=== PATIENT | male | born 1965 | race Caucasian/White ===

== ENCOUNTER → 2020-07-10 12:00 | Outpatient (CLI) | payer OTHER, SELFPAY ==
[2020-07-11 20:09] LABS: COVID19 Sendout Not Detected (Not Detect)
== END ==
PROVIDERS: Visit Provider Physician Assistant
DX: Z11.59 Encounter for screening for other viral diseases (principal)
CPT/HCPCS: 87635

== ENCOUNTER 2020-07-13 13:55 | Day surgery (SDC) | payer OTHER, SELFPAY ==
[2020-07-11 08:07] VITALS: BMI 21.7
[2020-07-13] VITALS (10 sets, daily range): BP systolic 115–157; BP diastolic 76–94; PULSE 79–100; RESP 12–20; TEMP 36.2–37.2; O2SAT 93–100; BMI 21.2
--- NOTE | 2020-07-13 | DI.RAD.S_ITS ---
PROCEDURE: XR LUMBAR SPINE 2-3V INDICATIONS: MICRO-D TECHNIQUE: 2 views of the lumbar spine were acquired. COMPARISON: None. FINDINGS: Bones: Intraoperative assessment documenting port placement for micro discectomy on the left, overlying the L5-S1 disc space axial level superimposed on the posterior elements. Soft tissues: Overlying bowel gas pattern is normal. No suspicious soft tissue calcifications. IMPRESSION: L5-S1 axial level localization on the left at the dorsal spinal elements in that area. Dictated by: Karthik Crooks M.D. on 07/13/2020 at 17:44 Approved by: Karthik Crooks M.D. on 07/13/2020 at 17:45
[2020-07-13] MEDS: LACTATED RINGERS 1,000 ML 42 ML IV ×2 (14:31→16:40)
--- NOTE | 2020-07-13 15:27 | PM.PREOP ---
Pre-operative Note COVID-19 COVID-19 status: Negative Result date/Date tested (Pos, Neg/Pending): 07/11/20 Interval Note History & Physical reviewed/Exam performed by Physician: Yes Changes to H&P: No
[2020-07-13] MEDS: CEFAZOLIN 1 GM VIAL IV (16:23)
--- NOTE | 2020-07-13 16:25 | SUR.OPER ---
Prone on spine table, head in foam head support, padded chest and pelvic supports, gel pad at knees, lower legs supported by pillows; nipples, genitalia and toes free of pressure, arms secured on foam padded arm boards at <90 degrees abduction. Tape over blanket at thigh secured to table.
[2020-07-13] MEDS: methylPREDNISolone acet DEPO 40 MG/ML VIAL IM (16:27)
[2020-07-13] MEDS: BUPIVACAINE 0.25% W/ EPI (PF) 10 ML VIAL 20 ML INJ (16:28)
--- NOTE | 2020-07-13 17:13 | P.OP_ITS ---
Operative Date/Time/Diagnoses Date of procedure: 07/13/20 Time of procedure: 16:13 Pre-op diagnosis: 1. L5-S1 disc herniation 2. Lumbar radiculopathy Post-op diagnosis: same Procedure & Clinicians Procedure: 1. L5-S1 left microdiscectomy 2. Utilization of microsurgical technique and operating microscope Same procedure as scheduled: Yes Indications: Patient has been having chronic back pain and worsening lumbar radiculopathy. Patient failed multiple conservative management with worsening pain weakness and numbness in her lower extremity. Patient has been having difficulty performing activity of daily living. After discussing risks benefits of treatment options, patient elected proceed with surgery. Surgeon: Bennie Mahmood Kitchen Mechanic: Sarai Villa Click Yes if Unassisted: No Anesthesia Type: General Operative Notes Closure Type: primary Specimen(s): none sent Estimated Blood Loss (mL): 5 Blood products transfused: none Procedure in detail: Patient was seen in the preoperative area. Risks and benefits of the surgery was discussed with the patient. Informed consent was obtained from the patient and placed in the chart. Surgical site was marked. Patient was taken to the operative room. General anesthesia was administered. Prophylactic antibiotic was given to the patient less than 30 min before the incision was made. Patient was placed into a prone position on the Wilfred table. Patient's back was then prepped and draped in the sterile fashion. Time- out was performed at this time. Using AP and lateral C-arm imaging the interval between L5-S1 was identified and marked on patient's back. A 1 inch incision 1 in from midline was made on the left side. The fascia was incised in line with skin incision. Globus MARS retractors was placed inside the incision and docked onto the L5 lamina. Using microsurgical technique and operating microscope, a L5 laminotomy was performed using a Kerrison rongeur. Liagamentum flavum was resected at the site of the laminotomy. The disc space at L5-S1 was identified. Microdiscectomy was performed by incising the annulus with #11 blade. Microcurettes and pituitary was used to removed herniated disc fragments of disc from the epidural space. After the microdiskectomy was completed, the area medial lateral superior and inferior to the area of the microdiskectomy was inspected and explored using a micro curette. No other impinging structure was identified. There was significant amount of adhesion between the disc and the dura. In order to prevent accidental injury to the dura careful dissection was made using micropituitary and micro curette. Small amount of residual disc was intimately connected to the dura and was left attached in order to prevent accidental injury to the dura. Epidural space as well as neural foramen are fully decompressed after the resection of disc fragments hypertrophied ligamentum flavum and parts of the facet was resected. The wound was then irrigated with sterile normal saline. 40 mg Depo-Medrol was placed into the epidural space. The deep fascia was closed with 1-0 Vicryl. The subcutaneous tissue was closed with 2-0 Vicryl. The skin was closed with 4-0 Monocryl. Patient tolerated the procedure well. There were no complications. Patient was transferred recovery room in stable condition. Complications: none Post-operative Condition: stable Disposition: PACU Plan for aftercare: Discharge to home
[2020-07-13] MEDS: fentaNYL 100 MCG/2 ML INJ IV (17:46)
[2020-07-13] MEDS: hydrOXYzine 50 MG/ML INJ 25 MG IM (17:50)
[2020-07-13] MEDS: OXYCODONE/ACETAMINOPHEN 5/325 TABLET 1 TAB PO (17:52)
[2020-07-13] MEDS: HYDROMORPHONE 2 MG INJ 1 MG IV (18:05)
== END 2020-07-13 18:43 | disposition home or self-care (01) ==
PROVIDERS: PCP Family Medicine; Referring Provider Family Medicine; Visit Provider Orthopaedic Surgery Orthopaedic Surgery of the Spine
PROC: (CPT 63030; principal; 2020-07-13 15:15)
DX: M51.17 Intervertebral disc disorders with radiculopathy, lumbosacral region (principal); M19.012 Primary osteoarthritis, left shoulder; L40.50 Arthropathic psoriasis, unspecified
CPT/HCPCS: 63030; 72100; 76000; J0330; J0690; J1030; J1100; J1170; J2405; J2704; J3010; J3410

== ENCOUNTER → 2021-03-01 07:56 | Outpatient (CLI) | payer OTHER, SELFPAY ==
[2021-03-01 11:22] LABS: COVID19 -Nasal RAPID Negative (Negative)
== END ==
PROVIDERS: PCP Family Medicine; Visit Provider Student in an Organized Health Care Education/Training Program
DX: Z01.812 Encounter for preprocedural laboratory examination (principal); Z20.822 Contact with and (suspected) exposure to COVID-19
CPT/HCPCS: 87635

== ENCOUNTER 2021-03-03 09:32 | Day surgery (SDC) | payer OTHER, SELFPAY ==
[2021-02-24 09:43] VITALS: BMI 21.7
[2021-03-03] VITALS (11 sets, daily range): BP systolic 111–157; BP diastolic 65–94; PULSE 93–121; RESP 12–18; TEMP 36.2–36.7; O2SAT 94–100; BMI 21.7
[2021-03-03] MEDS: ACETAMINOPHEN 325 MG TABLET 975 MG PO (09:57)
[2021-03-03] MEDS: GABAPENTIN 300 MG CAPSULE PO (09:57)
[2021-03-03] MEDS: LACTATED RINGERS 1,000 ML 42 ML IV ×2 (10:25→14:26)
--- NOTE | 2021-03-03 12:20 | PM.PREOP ---
Pre-operative Note COVID-19 COVID-19 status: Negative Result date/Date tested (Pos, Neg/Pending): 03/01/21 Interval Note History & Physical reviewed/Exam performed by Physician: Yes Changes to H&P: No
[2021-03-03] MEDS: CEFAZOLIN 1 GM VIAL 2 GM IV ×2 (13:32→20:36)
[2021-03-03] MEDS: BUPIVACAINE LIPOSOME 266 MG/20 ML VIAL INJ (13:50)
[2021-03-03] MEDS: BUPIVACAINE 0.25% (PF) VIAL 30 ML INJ (13:50)
--- NOTE | 2021-03-03 14:58 | P.EN_ITS ---
Event Note Date Patient Seen: 03/03/21 Time Patient Seen: 13:02 Event Note: Patient: Sanchez Hutson : 1965 Surgery: L5-S1 TLIF Date: 03/03/2021 Difficult Airway Letter You have been found to have a difficult airway. This means that it was challenging for an Anesthesiologist to put in a breathing tube. This may happen in the future as well, so please bring this letter or at least tell future providers of this issue. This was an anticipated challenge based on pre- operative exam. Exam: BMI normal, mallampati score 3 with small mouth opening, adequate prognathia, good thyromental distance and neck range of motion greatly limited. Narrative: A general anesthetic with ETT was planned. Smooth IV induction after 3 minutes of pre-oxygenation, keeping patient's head/neck in a postition of his comfort. An initial look was attempted with a Etienne 2 and elicited a grade 4 view. A glidescope with a LoPro S3 blade was used, grade 2b view on video, 7.0 ETT passed through cords with stylette. (+) EtCO2. Successful technique: glidescope videolaryngoscope LoPro S3 blade with use of stylette. Very Respectfully, Anum PERRIN Anesthesiologist
--- NOTE | 2021-03-03 15:25 | DI.RAD.S_ITS ---
PROCEDURE: XR LUMBAR SPINE 2-3V INDICATIONS: L5-S1 TLIF TECHNIQUE: 2 intraoperative views of the lumbar spine were acquired. COMPARISON: [facility], CR, XR LUMBAR SPINE 2-3V, 07/13/2020, 16:24. FINDINGS: Pedicle screws at L5-S1 with intervertebral body spacer. Hardware projects in the expected locations. IMPRESSION: Expected appearance L5-S1 TLIF. Dictated by: Art Squires M.D. on 03/03/2021 at 16:05 Approved by: Art Squires M.D. on 03/03/2021 at 16:07
--- NOTE | 2021-03-03 15:26 | P.OP_ITS ---
Operative Date/Time/Diagnoses Date of procedure: 03/03/21 Time of procedure: 15:30 Pre-op diagnosis: 1. L5-S1 retrolisthesis 2. L5-S1 spinal stenosis with radiculopathy 3. L5-S1 spondylosis with radiculopathy Post-op diagnosis: same Procedure & Clinicians Procedure: 1. L5-S1 Postero-lateral and posterior interbody fusion 2. L5-S1 interbody cage placement. 3. L5-S1 decompressive laminectomy with bilateral facetecomies 4. L5-S1 Posterior non-segmental instrumentation 5. [place] of bone marrow from iliac crest 6. Utilization of microsurgical technique and operating microscope Same procedure as scheduled: Yes Indications: Patient has been having chronic back pain and worsening lumbar radiculopathy. Patient had previous microdiskectomy with temporary relief of his radicular symptoms. Patient has been having worsening back pain and radiculopathy over the last 6 months. Patient failed multiple conservative management with worsening pain weakness and numbness in her lower extremity. Patient has been having difficulty performing activity of daily living. After discussing risks benefits of treatment options, patient elected proceed with surgery. Surgeon: Bennie Mahmood Brake Press Operator: Paramjit Matthew Click Yes if Unassisted: No Anesthesia Type: General Operative Notes Closure Type: primary Specimen(s): none sent Prosthetic devices, grafts, tissues, transplants, or devices: Globus revolve screws, Rise cage Estimated Blood Loss (mL): 50 Blood products transfused: none Procedure in detail: Patient was seen in the preoperative area. Risks and benefits of the surgery was discussed with the patient. Informed consent was obtained from the patient and placed in the chart. Surgical site was marked. Patient was taken to the operative room. General anesthesia was administered. Prophylactic antibiotic was given to the patient less than 30 min before the incision was made. Patient was placed into a prone position on the Wilfred table. Patient's back was then prepped and draped in the sterile fashion. Time- out was performed at this time. Using AP and lateral C-arm imaging the interval between L5-S1 was identified and marked on patient's back. A 2 inch incision 2 in from midline was made on the left side first. The fascia was incised in line with skin incision. Globus MARS retractors was placed inside the incision and docked onto the L5 lamina. Using microsurgical technique and operating microscope, a L5 laminectomy and L5-S1 facetectomy was performed using a Kerrison rongeur. Patient was found have severe neural foraminal stenosis and required a total facetectomy for decompression which rendered L5-S1 grossly unstable and required a fusion procedure at the same time. The disc space at L5-S1 was identified. And a total diskectomy was performed at L5-S1 level. The endplates were decorticated using a rasp and shaver. The total diskectomy and decortication was performed at L5-S1 level in order to to accomplish a L5-S1 fusion. The local bone from the laminectomy and facetectomy was saved for local bone grafting. After the total diskectomy and decortication was completed, Trifecta bone graft material was combined with local bone that was harvested earlier. At this time, a separate skin is incision was made over the iliac crest. A Jamshidi needle was inserted into the iliac crest through a separate skin incision. 5 cc of bone marrow aspiration was obtained through the separate skin incision using a Jamshidi needle from the iliac crest. The bone marrow aspiration was combined with local bone and the Trifecta bone grafting material. The bone grafting material was placed into the L5-S1 interbody space along with a expandable cage. The cage was expanded to its maximum height using the torque limiting screwdriver. At this time a mirror image incision was made on the right side. The fascia was incised in line with the skin incision. Globus MARS retractor was inserted and docked onto the L5-S1 posterolateral gutter. Using the power drill, posterior- lateral decortication was performed at L5-S1 level until bleeding cortical bone was identified. The remaining bone grafting material was placed into the L5-S1 posterior lateral gutter he order to accomplish posterolateral fusion at the L5- S1 level. Using the double C-arm technique, pedicle screws were placed into the L5-S1 pedicles bilaterally. This was done by placing the Jamshidi needle into the pedicles, then placing the guidewires over the Jamshidi needle, and finally placing the cannulated screws over the guidewires bilaterally. After the pedicle screws were placed, 2 titanium rods was locked into the heads of the pedicle screws using locking caps and torque limiting screwdriver. After all the hardware was placed, and confirmed with AP and lateral C-arm imaging, the wound was then irrigated with sterile normal saline and packed with Ray-Echo gauze for 3 min to accomplish hemostasis. After the gauze was removed the deep fascia was closed with #1 Vicryl suture. The subcutaneous layer was closed with 2-0 Vicryl. The skin was closed with skin [place]. Patient tolerated the procedure well. There were no complications. Complications: none Post-operative Condition: stable Disposition: PACU Plan for aftercare: Admit to inpatient hospital
[2021-03-03] MEDS: fentaNYL 100 MCG/2 ML INJ IV ×4 (15:50→16:09)
[2021-03-03] MEDS: HYDROMORPHONE 2 MG INJ IV ×4 (15:54→16:12)
[2021-03-03] MEDS: OXYCODONE IR 5 MG TABLET PO (16:10)
[2021-03-03] MEDS: SODIUM CHLORIDE 0.9% 1,000 ML 100 ML IV (16:54)
[2021-03-03] MEDS: PRAVASTATIN 20 MG TABLET 40 MG PO (17:11)
[2021-03-03] MEDS: OXYCODONE IR 5 MG TABLET 10 MG PO ×2 (17:12→20:01)
[2021-03-03] MEDS: hydrOXYzine pamoate 25 MG CAPSULE PO ×2 (17:12→21:46)
[2021-03-03] MEDS: HYDROMORPHONE 0.5 MG INJ IV ×2 (18:33→21:46)
[2021-03-03] MEDS: ACETAMINOPHEN 325 MG TABLET 650 MG PO (20:02)
[2021-03-03] MEDS: DOCUSATE 100 MG CAPSULE PO (21:46)
[2021-03-03] MEDS: SENNOSIDES 8.6 MG TABLET 17.2 MG PO (21:46)
[2021-03-04] MEDS: OXYCODONE IR 5 MG TABLET 10 MG PO ×4 (00:40→11:56)
[2021-03-04 01:00] VITALS: BP 117/63; PULSE 97; RESP 18; TEMP 37.1; O2SAT 99
[2021-03-04] MEDS: HYDROMORPHONE 0.5 MG INJ IV ×2 (02:31→06:32)
[2021-03-04 04:09] VITALS: BP 118/69; PULSE 84; RESP 16; TEMP 36.5; O2SAT 99
[2021-03-04] MEDS: hydrOXYzine pamoate 25 MG CAPSULE PO ×2 (04:31→11:56)
[2021-03-04] MEDS: CEFAZOLIN 1 GM VIAL 2 GM IV (05:01)
[2021-03-04 07:52] VITALS: BP 147/76; PULSE 92; RESP 18; TEMP 37.1; O2SAT 99
[2021-03-04] MEDS: DOCUSATE 100 MG CAPSULE PO (08:20)
[2021-03-04] MEDS: PANTOPRAZOLE DR 40 MG TABLET PO (08:20)
[2021-03-04] MEDS: lisinopriL 10 MG TABLET PO (08:20)
[2021-03-04] MEDS: ACETAMINOPHEN 325 MG TABLET 650 MG PO (08:20)
[2021-03-04] MEDS: LEFLUNOMIDE 20 MG TABLET PO (08:20)
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
--- NOTE | 2021-03-04 12:36 | CM.DANOTE ---
DCP Brief Assessment Patient is a 55 year old male who was admitted on 03/03/21 for TLIF. Pt has [facility] for insurance and his PCP is Dr. Suad Farris. EMR was reviewed. Per Ortho PA, pt tolerated procedure well and pain is controlled and pt has been able to ambulate well and stable for d/c home today with no identified barriers to discharge. Per RN, no concerns at this time. PT note not available but seen walking in avery with pt independently. No bedside assessment completed at this time due to triage needs. Plan: Patient to d/c home today via spouse POV and assist and outpt PT and no SW needs at this time. IVAN Powell
== END 2021-03-04 13:00 | disposition home or self-care (01) ==
LOC: OR 09:33 → AC 09:34 → ICU 12:17
PROVIDERS: PCP Family Medicine; Referring Provider Orthopaedic Surgery Orthopaedic Surgery of the Spine; Visit Provider Orthopaedic Surgery Orthopaedic Surgery of the Spine
PROC: (CPT 22633; principal; 2021-03-03 11:45)
DX: M43.17 Spondylolisthesis, lumbosacral region (principal); M48.061 Spinal stenosis, lumbar region without neurogenic claudication; M47.27 Other spondylosis with radiculopathy, lumbosacral region; M51.16 Intervertebral disc disorders with radiculopathy, lumbar region; I10 Essential (primary) hypertension; L40.50 Arthropathic psoriasis, unspecified; Z98.890 Other specified postprocedural states
CPT/HCPCS: 22633; 20939; 22840; 22853; 63047; 72100; 76000; 87797; 97161; 97165; 97535; C1776; C9290; J0330; J0690; J1100; J1170; J2250; J2405; J2704; J3010